=== PATIENT | female | born 1960 | race Caucasian/White ===

== ENCOUNTER 2016-09-18 10:43 | Emergency (ER) | payer OTHER ==
[~2016-09-18] VITALS: Ht 157.5 cm; Wt 59.1 kg
[2016-09-18] MEDS ORDERED: NS 1,000 ML IV ONE (11:15)
[2016-09-18] MEDS ORDERED: ONDANSETRON 4MG/2ML VIAL (J2405) IV ONE (11:15)
[2016-09-18] MEDS ORDERED: ADACEL/BOOSTRIX VACCINE (DIPHTH/PERTUSS/ACELL/TETANUS)0.5ML SYR (90715) IM ONE (11:15)
[2016-09-18] MEDS ORDERED: MORPHINE 2 MG/ML 1ML SYRINGE IV ONE (11:15)
[2016-09-18 11:21] LABS: BASO % 0.5 % (0.0-1.0); EOS # 0.1 K/mm3 (0.0-0.50); EOS % 1.7 % (0.0-3.0); LARGE UNSTAINED CELL # 0.1 K/mm3 (0.0-0.4); LARGE UNSTAINED CELL % 1.6 % (0.0-4.0); LYMPH # 2.1 K/mm3 (1.5-4.5); LYMPH % 26.5 % (24.0-44.0); MEAN CORPUSCULAR HEMOGLOBIN 31.7 pg (27.0-33.0); MEAN CORPUSCULAR HGB CONC 33.4 g/dl (32.0-36.5); MEAN CORPUSCULAR VOLUME 94.9 fl (80.0-96.0); MONO # 0.3 K/mm3 (0.0-0.8); MONO % 3.7 % (0.0-5.0); NEUTROPHILS # 5.3 K/mm3 (1.8-7.7); PLATELET COUNT, AUTOMATED 194 k/mm3 (150-450); RED CELL DISTRIBUTION WIDTH 12.6 % (11.5-14.5)
[2016-09-18 11:26] LABS: ANION GAP 7 MEQ/L (8-16); BLOOD UREA NITROGEN 20 MG/DL (7-18); CALCIUM LEVEL 8.9 MG/DL (8.5-10.1); CARBON DIOXIDE LEVEL 28 MEQ/L (21-32); CHLORIDE LEVEL 103 MEQ/L (98-107); GLOMERULAR FILTRATION RATE > 60.0 (>51); GLUCOSE, FASTING 113 MG/DL (70-105); SODIUM LEVEL 138 MEQ/L (136-145)
--- NOTE | 2016-09-18 12:05 | REP ---
Clinical: Trauma. Technique: AP, lateral, bilateral oblique views left foot . Findings: There is soft tissue swelling at the lateral malleolus. The osseous structures and joint spaces are intact and normal. There is no evidence for acute fracture or dislocation. Surrounding soft tissues are unremarkable. No subcutaneous emphysema or radiodense foreign body. Small calcaneal heal spur noted on lateral radiograph. Impression: Soft tissue swelling at the ankle / lateral malleolus. Age appropriate examination . No acute fracture or dislocation involving the foot. Signed by Hernan Peres MD 09/18/2016 11:57 A
--- NOTE | 2016-09-18 12:22 | REP ---
LEFT ANKLE, FOUR VIEWS: HISTORY: Trauma. There is a nondisplaced fracture of the distal fibula. There is no dislocation. Several radiopaque densities are present in the soft tissue adjacent to the medial malleolus. These may represent foreign bodies. There is a defect in the overlying soft tissue. Soft tissue swelling is present. IMPRESSION: Nondisplaced fracture of the distal fibula. Signed by Jasen Taylor MD 09/18/2016 12:48 P
[2016-09-18] MEDS ORDERED: LIDOCAINE 2% W/EPIN INJ 20ML **PRES FREE INJ ONE (13:00)
[2016-09-18] MEDS ORDERED: MORPHINE 4 MG/ML 1ML SYRINGE As Ordered ONE (13:21)
[2016-09-18] MEDS ORDERED: MORPHINE 4 MG/ML 1ML SYRINGE IV ONE ×2 (13:45→15:15)
[2016-09-18] MEDS ORDERED: KEFL500C17 PO (15:10)
[2016-09-18] MEDS ORDERED: NORCOTAB PO (15:11)
[2016-09-18] MEDS ORDERED: NORCO, ANEXSIA 5/325MG TABLET (HYDROcodone/ACETAMINOPHEN) PO ONE (15:15)
[2016-09-18 15:17] VITALS: BP 98/57
== END 2016-09-18 16:21 | disposition home or self-care (01) ==
LOC: M ED 10:43
DX: S82.402A Unspecified fracture of shaft of left fibula, initial encounter for closed fracture (principal); S91.012A Laceration without foreign body, left ankle, initial encounter; W23.0XXA Caught, crushed, jammed, or pinched between moving objects, initial encounter; Y92.099 Unspecified place in other non-institutional residence as the place of occurrence of the external cause; Y93.89 Activity, other specified; Y99.9 Unspecified external cause status; Z88.2 Allergy status to sulfonamides
CPT/HCPCS: 12004; 73610; 73630; 80048; 85025; 90471; 90715; 96361; 96365; 96366; 96375; 96376; 99284; J0690; J2405